=== PATIENT | male | born 1970 | race Caucasian/White ===

== ENCOUNTER 2016-11-17 16:27 | Emergency (ER) | payer OTHER ==
--- NOTE | 2016-11-17 16:56 | RAD ---
WRIST- LEFT 3 VIEWS HISTORY: Fall onto outstretched hand. COMPARISONS: None. FINDINGS: 4 views of the left wrist demonstrate a comminuted intra-articular fracture involving the distal left radial metaphysis. A slightly displaced fragment is seen along the radial aspect of the distal radial metaphysis. No significant angulation is observed. The carpal structures appear to be intact. There may be an associated ulnar styloid fracture as well. IMPRESSION: 1. A comminuted intra-articular fracture of the distal left radial metaphysis with a questionable associated ulnar styloid fracture.
[2016-11-17] MEDS ORDERED: ACETAMINOPHEN 500 MG TABLET ONE (17:26)
== END 2016-11-17 18:19 | disposition home or self-care (01) ==
LOC: ED 16:27
DX: S52.502A Unspecified fracture of the lower end of left radius, initial encounter for closed fracture (principal); W18.30XA Fall on same level, unspecified, initial encounter; Y93.39 Activity, other involving climbing, rappelling and jumping off; Y92.219 Unspecified school as the place of occurrence of the external cause; Y99.0 Civilian activity done for income or pay
CPT/HCPCS: 73110; 99283 ×2; 29125; A9270